=== PATIENT | female | born 1975 | race Two or more races ===

== ENCOUNTER 2020-08-01 13:00 | Inpatient (IN) | payer OTHER ==
[~2020-08-01] VITALS: Ht 157.5 cm; Wt 84.4 kg
[2020-08-01] MEDS ORDERED: VALSARTAN40 MG PO (16:06)
[2020-08-01] MEDS ORDERED: TOPROL XL25 M1 PO (16:06)
[2020-08-01] MEDS ORDERED: SYNTHROID88 MCG PO (16:06)
[2020-08-01] MEDS ORDERED: OMEPRAZOLE-BIC1 EAC1 PO (16:06)
[2020-08-05] MEDS ORDERED: MEGESTROL ACETA40 MG (08:01)
[2020-08-05] MEDS ORDERED: NORTREL 1-35 21 EAC1 (08:02)
[2020-08-05] MEDS ORDERED: OMEPRAZOLE40 MG PO (08:02)
[2020-08-06] MEDS ORDERED: NEURONTIN600 MG PO (07:04)
[2020-08-06] MEDS ORDERED: POLY119PG PO (07:05)
[2020-08-06] MEDS ORDERED: SIMETHICONE125 M1 PO (07:05)
[2020-08-06] MEDS ORDERED: TOPROL XL25 M1 PO (07:05)
== END 2020-08-06 10:01 | disposition home or self-care (01) | DRG 743 ==
LOC: O/R 08-04 05:19 → OB/GYN 08-04 05:19 → SURH 08-04 13:00 → OB/GYN 08-06 10:01
PROVIDERS: ADMIT Obstetrics & Gynecology; ATTEND Obstetrics & Gynecology
PROC: 0UB70ZZ Excision of Bilateral Fallopian Tubes, Open Approach (ICD-10-PCS; 2020-08-04)
PROC: 0UT90ZZ Resection of Uterus, Open Approach (ICD-10-PCS; principal; 2020-08-04 11:30)
DX: D25.1 Intramural leiomyoma of uterus (principal); D25.2 Subserosal leiomyoma of uterus; N83.8 Other noninflammatory disorders of ovary, fallopian tube and broad ligament; N85.00 Endometrial hyperplasia, unspecified; D64.9 Anemia, unspecified; I10 Essential (primary) hypertension